=== PATIENT | female | born 1980 | race Caucasian/White ===

== ENCOUNTER 2024-03-07 14:47 | Emergency (ER) | payer OTHER ==
[2024-03-07] MEDS ORDERED: Morphine 4 MG/ML VIAL ONE ×2 (15:14→18:15)
[2024-03-07] MEDS ORDERED: Ondansetron PF 4 MG/2 ML Vial ONE ×2 (15:14→18:15)
[2024-03-07 15:38] LABS: #Basophils 0.05 10x3/uL (0.0-0.2); #Eosinphils 0.17 10x3/uL (0.0-0.5); #Monocytes 0.56 10x3/uL (0.0-1.1); #Neutrophils 8.16 10x3/uL (1.5-8.4); %Basophils 0.4 % (0.0-2.0); %Eosinophils 1.5 % (0.0-6.0); %Lymphocytes 20.1 % (18.0-47.0); %Neutrophils 72.7 % (40.0-75.0); Hematocrit 39.7 % (34.9-44.5); Hemoglobin 12.5 g/dL (12.0-15.5); Mean Corpuscular HGB CONC 31.5 g/dL (32.0-36.0); Mean Corpuscular Hemoglobin 25.7 pg (27.0-33.0); Mean Corpuscular Volume 81.7 fL (81.6-98.3); Mean Platelet Volume 12.2 fL (7.4-10.4); Platelet Count 357 10x3/uL (150-450); RBC Distribution Width 15.7 % (11.5-14.5); Red Blood Cell (RBC) Count 4.86 10x6/uL (3.90-5.03); White Blood Cell (WBC) Count 11.2 10x3/uL (3.5-10.5)
[2024-03-07 15:40] LABS: BHCG - Serum Negative (NEGATIVE); Pregs Control Background? CLEAR/WHITE (CLR/WHITE); Pregs Control Bar Appear? YES (CONTROL BAR)
[2024-03-07 15:46] LABS: ALT (SGPT) 23 U/L (8-55); AST (SGOT) 21 U/L (5-34); Albumin 4.1 g/dL (3.5-5.0); Alkaline Phosphatase 97 U/L (40-110); Anion Gap 16 mmol/L (10-20); BUN (Urea Nitrogen) 32 mg/dL (7.0-18.7); Bilirubin, Total 0.5 mg/dL (0.2-1.2); Calc. Creatinine Clearance 0 mL/min (70-130); Carbon Dioxide 23 mmol/L (22-29); Chloride 101 mmol/L (98-107); Estimated GFR 41; Globulin 4.1 g/dL (2.4-3.5); Glucose 111 mg/dL (70-105); Potassium 3.6 mmol/L (3.5-5.1); Protein, Total 8.2 g/dL (6.0-8.3); Sodium 136 mmol/L (136-145)
[2024-03-07 17:52] LABS: Bilirubin Neg (Negative); Blood, Urine 250 (Negative); Clarity Clear (Clear); Glucose, Urine (Dipstick) Normal (Negative); Ketone, Urine Negative (Negative); Leukocyte Negative (Negative); Nitrite Negative (Negative); Protein, Urine (Dipstick) Negative (Neg-Trace); Specific Gravity, Urine 1.015 (1.005-1.030); Urobilinogen Normal mg/dL (Less than 2)
[2024-03-07 18:12] LABS: Bacteria/HPF Rare-Few HPF (None Seen); CAUTI Indications for Culture Pelvic or flank pain; Squamous Epithelial 0-3 HPF (0-3); Urine Culture Reflex No No; WBC/HPF 0-3 HPF (0-3)
== END 2024-03-07 18:30 | disposition home or self-care (01) ==
LOC: CSHERS 14:47
DX: N92.0 Excessive and frequent menstruation with regular cycle (principal); I10 Essential (primary) hypertension; E11.9 Type 2 diabetes mellitus without complications
CPT/HCPCS: 36415; 76856; 80053; 81001; 84703; 85025; 86850; 86900; 86901; 96374; 96375; 96376; J2270; J2405

== ENCOUNTER 2024-03-11 14:26 | Emergency (ER) | payer OTHER ==
[2024-03-11] MEDS ORDERED: Ketorolac Tromethamine 30 MG (1 mL) VIAL ONE (15:02)
[2024-03-11] MEDS ORDERED: Dexamethasone 10 MG/ML VIAL ONE (15:02)
== END 2024-03-11 15:25 | disposition home or self-care (01) ==
LOC: CSHERS 14:26
DX: R10.2 Pelvic and perineal pain (principal); T50.905A Adverse effect of unspecified drugs, medicaments and biological substances, initial encounter; E11.9 Type 2 diabetes mellitus without complications; I10 Essential (primary) hypertension
CPT/HCPCS: 93005; 96374; 96375; J1100; J1885

== ENCOUNTER 2024-09-11 05:55 | Observation (INO) | payer BC ==
[2024-09-07 08:25] VITALS: BMI 47.0
[2024-09-07 10:30] LABS: Hemoglobin 11.5 g/dL (12.0-15.5); Mean Corpuscular HGB CONC 31.9 g/dL (32.0-36.0); Mean Corpuscular Hemoglobin 26.8 pg (27.0-33.0); Mean Corpuscular Volume 83.9 fL (81.6-98.3); Mean Platelet Volume 13.4 fL (7.4-10.4); Platelet Count 249 10x3/uL (150-450); RBC Distribution Width 15.6 % (11.5-14.5); Red Blood Cell (RBC) Count 4.29 10x6/uL (3.90-5.03)
[2024-09-07 10:50] LABS: BHCG - Serum Negative (NEGATIVE); Pregs Control Background? CLEAR/WHITE (CLR/WHITE); Pregs Control Bar Appear? YES (CONTROL BAR)
[2024-09-11] MEDS ORDERED: CeleCOXIB 100 MG CAP ONE (07:02)
[2024-09-11] MEDS ORDERED: Gabapentin 300 MG CAP ONE (07:02)
[2024-09-11] MEDS ORDERED: Methylene Blue 50 MG/10 ML AMPUL ONE (07:03)
[2024-09-11] MEDS ORDERED: Famotidine/PF 20 mg/2ml Vial ONE (07:03)
[2024-09-11] MEDS ORDERED: Lidocaine 1% w/Epinephrine 1:200K 30 ML VIAL ONE (07:03)
[2024-09-11] MEDS ORDERED: Bupivacaine HCl 0.5%/Epinephrine 1:200,000/PF 30 ml Vial ONE (07:03)
[2024-09-11] MEDS ORDERED: Fentanyl 250 MCG/5 ML VIAL ONE (07:14)
[2024-09-11] MEDS ORDERED: PROPOFOL 40 ML ONE (07:14)
[2024-09-11] MEDS ORDERED: CEFAZOLIN 2 GM VIAL ONE (07:27)
[2024-09-11] MEDS ORDERED: Midazolam HCl 2 mg/2 ml Vial ONE (07:46)
[2024-09-11] MEDS ORDERED: Clindamycin/D5W 900 mg/50 ml Premix Bag ONE (08:39)
[2024-09-11] MEDS ORDERED: ePHEDrine Sulfate 50 MG/10 ML VIAL ONE (09:16)
[2024-09-11] MEDS ORDERED: Lidocaine 2% PF 5 ML VIAL ONE (09:16)
[2024-09-11] MEDS ORDERED: Ondansetron PF 4 MG/2 ML Vial ONE (09:16)
[2024-09-11] MEDS ORDERED: Dexamethasone 4 mg/ml Vial ONE (09:16)
[2024-09-11] MEDS ORDERED: PHENYLEPHRINE-NS 100 MCG/ML 10 ML SYRINGE ONE (09:16)
[2024-09-11] MEDS ORDERED: SUGAMMADEX SODIUM 200 MG/2 ML VIAL ONE (09:28)
[2024-09-11] MEDS ORDERED: fentaNYL 50 mcg/mL 1 mL Vial ONE ×3 (10:24→10:48)
[2024-09-11] MEDS ORDERED: Estradiol 0.05mg/24 Hour Patch (Weekly) ONE (10:39)
[2024-09-11] MEDS ORDERED: HYDROcodone/Acetaminophen 5/325 mg Tablet ONE (11:43)
[2024-09-11] MEDS ORDERED: diphenhydrAMINE 50 MG/ML VIAL ONE (12:08)
[2024-09-11] MEDS ORDERED: Ketorolac Tromethamine 30 MG (1 mL) VIAL ONE (13:25)
[2024-09-11] MEDS ORDERED: Simethicone Chewable 80 MG TAB PO PRN (13:46)
[2024-09-11] MEDS ORDERED: Ondansetron PF 4 MG/2 ML Vial IVP PRN (13:46)
[2024-09-11] MEDS ORDERED: Promethazine HCl 25 MG/ML VIAL IM PRN (13:46)
[2024-09-11] MEDS ORDERED: HYDROcodone/Acetaminophen 5/325 mg Tablet PO PRN ×2 (13:46)
[2024-09-11] MEDS ORDERED: Acetaminophen 325 MG TAB PO PRN (13:46)
[2024-09-11] MEDS ORDERED: Bisacodyl 10 MG SUPP PR PRN (13:46)
[2024-09-11] MEDS ORDERED: Furosemide 20 MG TAB PO PRN (13:51)
[2024-09-11] MEDS ORDERED: Estradiol 0.05mg/24 Hour Patch (Weekly) TD SCH (14:00)
[2024-09-11] MEDS ORDERED: Lorazepam 0.5 MG TAB PO SCH (15:00)
[2024-09-11] MEDS: fentaNYL 50 mcg/mL 1 mL Vial ONE (15:08)
[2024-09-11] MEDS ORDERED: fentaNYL 50 mcg/mL 1 mL Vial SLOW IVP PRN (15:14)
[2024-09-11] MEDS ORDERED: Phenazopyridine HCl 95 MG TAB PO PRN (16:19)
[2024-09-11] MEDS ORDERED: Oxybutynin 5 MG TAB PO PRN (16:19)
[2024-09-11] MEDS ORDERED: HYDROcodone/Acetaminophen 7.5/325 mg Tablet PO PRN (16:20)
[2024-09-11] MEDS: Lorazepam 1 MG TAB PO PRN (16:28)
[2024-09-11] MEDS: metFORMIN 500 MG TAB PO SCH (16:28)
[2024-09-11] MEDS: HYDROcodone/Acetaminophen 7.5/325 mg Tablet PO PRN (17:14)
[2024-09-11] MEDS: Pantoprazole DR 40 MG TAB PO SCH ×2 (17:43→17:44)
[2024-09-11] MEDS: Lactated Ringer's 1,000 ML IV SCH (17:53)
[2024-09-11] MEDS: Ketorolac Tromethamine 30 MG (1 mL) VIAL IVP SCH (19:41)
[2024-09-11] MEDS: diphenhydrAMINE 25 MG CAP PO PRN (23:17)
[2024-09-12 04:26] LABS: Anion Gap 16 mmol/L (10-20); BUN (Urea Nitrogen) 36 mg/dL (7.0-18.7); Calc. Creatinine Clearance 55 mL/min (70-130); Calcium 8.6 mg/dL (7.8-10.44); Carbon Dioxide 18 mmol/L (22-29); Chloride 109 mmol/L (98-107); Estimated GFR 25; Glucose 127 mg/dL (70-105); Potassium 4.5 mmol/L (3.5-5.1); Sodium 138 mmol/L (136-145)
[2024-09-12 04:38] LABS: Hematocrit 29.1 % (34.9-44.5); Hemoglobin 9.4 g/dL (12.0-15.5); Mean Corpuscular HGB CONC 32.3 g/dL (32.0-36.0); Mean Corpuscular Hemoglobin 26.9 pg (27.0-33.0); Mean Corpuscular Volume 83.1 fL (81.6-98.3); Mean Platelet Volume 13.4 fL (7.4-10.4); Platelet Count 192 10x3/uL (150-450); RBC Distribution Width 15.8 % (11.5-14.5); White Blood Cell (WBC) Count 10.7 10x3/uL (3.5-10.5)
[2024-09-12] MEDS: Levothyroxine Sodium 25 MCG TAB PO SCH (05:26)
[2024-09-12] MEDS ORDERED: Acetaminophen/Codeine 30-300mg Tablet PO PRN ×2 (08:47)
[2024-09-12] MEDS: Nebivolol HCl 5 MG TAB PO SCH ×2 (09:00→22:45)
[2024-09-12] MEDS ORDERED: Hydrochlorothiazide 25 MG TAB PO SCH (09:00)
[2024-09-12] MEDS: Amlodipine 10 MG TAB PO SCH ×2 (09:00→22:43)
[2024-09-12] MEDS ORDERED: Losartan 50 MG TAB PO SCH (09:00)
[2024-09-12] MEDS: Montelukast Sodium 10 mg Tablet PO SCH ×2 (09:00→22:44)
[2024-09-12] MEDS: Potassium Chloride 10 MEQ TAB PO SCH (09:08)
[2024-09-12] MEDS: diphenhydrAMINE 50 MG/ML VIAL IVP PRN (10:19)
[2024-09-12] MEDS: traMADol HCl 50 MG TAB PO PRN ×2 (10:19→17:25)
[2024-09-12 11:24] LABS: Anion Gap 15 mmol/L (10-20); BUN (Urea Nitrogen) 37 mg/dL (7.0-18.7); Calc. Creatinine Clearance 51 mL/min (70-130); Calcium 8.7 mg/dL (7.8-10.44); Carbon Dioxide 19 mmol/L (22-29); Chloride 108 mmol/L (98-107); Estimated GFR 23; Glucose 115 mg/dL (70-105); Potassium 4.4 mmol/L (3.5-5.1); Sodium 138 mmol/L (136-145)
[2024-09-12] MEDS: Acetaminophen 500 MG TAB PO SCH (13:09)
[2024-09-12] MEDS: Sodium Chloride 0.9% 1,000 ML IV SCH (13:10)
[2024-09-12] MEDS ORDERED: Insulin Lispro 100 UNIT/ML 10 ML VIAL SC PRN ×2 (13:22)
[2024-09-12] MEDS ORDERED: Glucagon 1 MG/ML KIT IM PRN (13:22)
[2024-09-12] MEDS ORDERED: Dextrose 5% in Water 1,000 ML IV PRN (13:22)
[2024-09-12] MEDS ORDERED: Dextrose 50% Abboject 50 ML SYRINGE SLOW IVP PRN (13:22)
[2024-09-12] MEDS: Zolpidem Tartrate 5 MG TAB PO PRN (22:52)
[2024-09-13 06:41] LABS: Anion Gap 13 mmol/L (10-20); BUN (Urea Nitrogen) 34 mg/dL (7.0-18.7); Calc. Creatinine Clearance 68 mL/min (70-130); Calcium 7.8 mg/dL (7.8-10.44); Carbon Dioxide 20 mmol/L (22-29); Chloride 114 mmol/L (98-107); Estimated GFR 32; Glucose 94 mg/dL (70-105); Potassium 4.5 mmol/L (3.5-5.1); Sodium 142 mmol/L (136-145)
[2024-09-13 08:06] VITALS: BP 107/56; TEMP 98
[2024-09-17] MEDS ORDERED: Ibuprofen 800 MG TAB PO SCH (02:00)
== END 2024-09-13 10:30 | disposition home or self-care (01) ==
LOC: CSHSDC 05:55 → CSHPED 14:13
PROVIDERS: ADMIT Student in an Organized Health Care Education/Training Program; ATTEND Student in an Organized Health Care Education/Training Program
PROC: 0UT94ZZ Resection of Uterus, Percutaneous Endoscopic Approach (ICD-10-PCS; principal; 2024-09-11)
PROC: 0UT74ZZ Resection of Bilateral Fallopian Tubes, Percutaneous Endoscopic Approach (ICD-10-PCS; 2024-09-11)
PROC: 0UT24ZZ Resection of Bilateral Ovaries, Percutaneous Endoscopic Approach (ICD-10-PCS; 2024-09-11)
DX: N87.9 Dysplasia of cervix uteri, unspecified (principal); N72 Inflammatory disease of cervix uteri; N80.03 Adenomyosis of the uterus; N80.00 Endometriosis of the uterus, unspecified; N70.11 Chronic salpingitis; N73.6 Female pelvic peritoneal adhesions (postinfective); N83.02 Follicular cyst of left ovary; N83.01 Follicular cyst of right ovary; N39.3 Stress incontinence (female) (male); N17.9 Acute kidney failure, unspecified; D27.1 Benign neoplasm of left ovary; D27.0 Benign neoplasm of right ovary; I10 Essential (primary) hypertension; E11.9 Type 2 diabetes mellitus without complications; E03.9 Hypothyroidism, unspecified; E66.9 Obesity, unspecified; F90.9 Attention-deficit hyperactivity disorder, unspecified type; F32.A Depression, unspecified; Z87.59 Personal history of other complications of pregnancy, childbirth and the puerperium; Z90.89 Acquired absence of other organs; Z90.49 Acquired absence of other specified parts of digestive tract; Z91.041 Radiographic dye allergy status; Z88.8 Allergy status to other drugs, medicaments and biological substances; Z79.890 Hormone replacement therapy; Z79.2 Long term (current) use of antibiotics; Z79.1 Long term (current) use of non-steroidal anti-inflammatories (NSAID); Z79.84 Long term (current) use of oral hypoglycemic drugs; Z79.899 Other long term (current) drug therapy
CPT/HCPCS: 36415; 36416; 76770; 80048; 84703; 85027; 86850; 86900; 86901; 88307; C1771; J1100; J1200; J1885; J2250; J2405; J2704; J3010; J3490; J7030; J7120; S2900